=== PATIENT | male | born 1945 | race Caucasian/White ===

== ENCOUNTER 2018-12-22 10:03 | Outpatient (CLI) | payer MEDICARE ==
[2018-12-22 17:45] LABS: BASOPHILS % (AUTO) 0.6 %; EOSINOPHILS # (AUTO) 0.2 10^3/uL (0.0-0.7); EOSINOPHILS % (AUTO) 2.3 %; HGB - HEMOGLOBIN 15.5 g/dL (14.0-18.0); LYMPHOCYTES # (AUTO) 1.6 10^3/uL (1.5-3.5); LYMPHOCYTES % (AUTO) 23.7 %; MEAN CORPUSCULAR HEMOGLOBIN 31.3 pg (27.0-31.0); MEAN CORPUSCULAR VOLUME 94.9 fL (80.0-94.0); MEAN PLATELET VOLUME 10.4 fL (7.4-11.4); MONOCYTES # (AUTO) 0.6 10^3/uL (0.0-1.0); MONOCYTES % (AUTO) 8.9 %; NEUTROPHILS # (AUTO) 4.4 10^3/uL (1.5-6.6); NEUTROPHILS % (AUTO) 64.2 %; PLT - PLATELET COUNT 329 10^3/uL (130-450); RED BLOOD COUNT 4.95 10^6/uL (4.70-6.10); WHITE BLOOD COUNT 6.9 x10^3/uL (4.8-10.8)
[2018-12-22 18:57] LABS: ALBUMIN 4.1 g/dL (3.2-5.5); ALBUMIN/GLOBULIN RATIO 1.4 (1.0-2.2); ALKALINE PHOSPHATASE 67 IU/L (42-121); ALT ALANINE AMINOTRANSFERASE 38 IU/L (10-60); AST ASPARTATE AMINOTRANSFERASE 42 IU/L (10-42); BILIRUBIN,TOTAL 1.8 mg/dL (0.2-1.0); BUN - BLOOD UREA NITROGEN 22 mg/dL (6-20); CALCIUM 9.2 mg/dL (8.5-10.3); CARBON DIOXIDE - CO2 24 mmol/L (21-32); CHLORIDE 103 mmol/L (101-111); CHOL/HDL RATIO 2.1 (<5.0); CHOLESTEROL 121 mg/dL; GFR - MDRD 74 (>89); GLUCOSE 98 mg/dL (70-100); HDL CHOLESTEROL 59 mg/dL; LDL CHOLESTEROL,CALCULATED 53 mg/dL; LDL/HDL RATIO 0.9 (<3.6); SODIUM 137 mmol/L (135-145); VLDL CHOLESTEROL 9 mg/dL
== END 2018-12-22 10:04 | disposition home or self-care (01) ==
LOC: LAB.S 10:03
PROVIDERS: ATTEND Physician Assistant
DX: E78.2 Mixed hyperlipidemia (principal); I10 Essential (primary) hypertension
CPT/HCPCS: 36415; 80053; 80061; 83721; 85025

== ENCOUNTER 2019-03-09 10:22 | Outpatient (CLI) | payer MEDICARE ==
--- NOTE | 2019-03-10 14:45 | XRAY Report ---
Reason: ACUTE ANKLE PAIN Procedure Date: 03/09/2019 Accession Number: [id number] / [id number] Procedure: XRS - Ankle 3 View RT CPT Code: FULL RESULT: EXAM: RIGHT ANKLE RADIOGRAPHY EXAM DATE: 03/09/2019 10:37 AM. CLINICAL HISTORY: Acute ankle pain. COMPARISON: None. TECHNIQUE: 3 views. FINDINGS: Bones: Normal. No fractures or bone lesions. Joints: Normal. No effusion. No subluxations. The ankle mortise is normally aligned. Soft Tissues: There is diffuse soft tissue swelling. IMPRESSION: Extensive soft tissue swelling. No visible fracture. RADIA
== END 2019-03-09 10:23 | disposition home or self-care (01) ==
LOC: DI.S 10:22
PROVIDERS: ATTEND Physician Assistant
DX: M25.571 Pain in right ankle and joints of right foot (principal); R22.41 Localized swelling, mass and lump, right lower limb

== ENCOUNTER 2019-06-29 13:46 | Outpatient (CLI) | payer MEDICARE ==
[2019-06-29 14:33] LABS: BASOPHILS % (AUTO) 0.4 %; EOSINOPHILS % (AUTO) 1.8 %; LYMPHOCYTES % (AUTO) 25.1 %; MEAN CORPUSCULAR HEMOGLOBIN 31.6 pg (27.0-31.0); MEAN CORPUSCULAR HGB CONC 33.7 g/dL (32.0-36.0); MEAN CORPUSCULAR VOLUME 93.9 fL (80.0-94.0); MONOCYTES % (AUTO) 6.8 %; NEUTROPHILS % (AUTO) 65.6 %; PLT - PLATELET COUNT 293 10^3/uL (130-450); RED BLOOD COUNT 5.06 10^6/uL (4.70-6.10); RED CELL DISTRIBUTION WIDTH 12.7 % (12.0-15.0); WHITE BLOOD COUNT 7.8 x10^3/uL (4.8-10.8)
[2019-06-29 14:38] LABS: ABNORMAL LYMPHS % (MANUAL) 0 %
[2019-06-29 14:50] LABS: BAND NEUTROPHILS % (MANUAL) 2 %; EOSINOPHILS # (MANUAL) 0.1 10^3/uL (0-0.7); LYMPHOCYTES # (MANUAL) 2.3 10^3/uL (1.5-3.5); LYMPHOCYTES % (MANUAL) 9 %; MONOCYTES # (MANUAL) 0.5 10^3/uL (0.0-1.0); PLATELET MORPHOLOGY RARE GIANT PLATELETS (NORMAL); RBC MORPHOLOGY (MULTIPLE) NORMAL APPEARANCE (NORMAL)
[2019-06-29 14:51] LABS: DIFFERENTIAL COMMENT MANUAL DIFFERENTIAL
[2019-06-29 15:08] LABS: ALBUMIN 4.3 g/dL (3.2-5.5); ALBUMIN/GLOBULIN RATIO 1.8 (1.0-2.2); BILIRUBIN,TOTAL 2.4 mg/dL (0.2-1.0); CALCIUM 9.1 mg/dL (8.5-10.3); TOTAL PROTEIN 6.7 g/dL (6.7-8.2)
[2019-06-30 12:33] LABS: HEPATITIS C ANTIBODY NON-REACTIVE (NON-REACTIVE)
== END 2019-06-29 13:47 | disposition home or self-care (01) ==
LOC: LAB 13:46
PROVIDERS: ATTEND Physician Assistant
DX: E80.6 Other disorders of bilirubin metabolism (principal); Z11.59 Encounter for screening for other viral diseases; R17 Unspecified jaundice
CPT/HCPCS: 36415; 80053; 83010; 83615; 85025; 86803

== ENCOUNTER 2020-02-24 06:39 | Outpatient (CLI) | payer MEDICARE ==
[2020-02-24 07:43] LABS: BASOPHILS % (AUTO) 0.6 %; EOSINOPHILS # (AUTO) 0.1 10^3/uL (0.0-0.7); EOSINOPHILS % (AUTO) 1.7 %; HGB - HEMOGLOBIN 16.7 g/dL (14.0-18.0); LYMPHOCYTES # (AUTO) 1.6 10^3/uL (1.5-3.5); LYMPHOCYTES % (AUTO) 22.5 %; MEAN CORPUSCULAR HEMOGLOBIN 31.7 pg (27.0-31.0); MEAN CORPUSCULAR HGB CONC 33.1 g/dL (32.0-36.0); MEAN CORPUSCULAR VOLUME 95.8 fL (80.0-94.0); MEAN PLATELET VOLUME 9.4 fL (7.4-11.4); MONOCYTES # (AUTO) 0.4 10^3/uL (0.0-1.0); MONOCYTES % (AUTO) 6.2 %; NEUTROPHILS # (AUTO) 4.8 10^3/uL (1.5-6.6); NEUTROPHILS % (AUTO) 68.4 %; PLT - PLATELET COUNT 322 10^3/uL (130-450); RED BLOOD COUNT 5.27 10^6/uL (4.70-6.10); RED CELL DISTRIBUTION WIDTH 12.9 % (12.0-15.0)
[2020-02-24 07:53] LABS: INR 1.1 (0.8-1.2); PT - PROTHROMBIN TIME 12.3 secs (9.9-12.6)
[2020-02-24 07:57] LABS: ALBUMIN 4.5 g/dL (3.2-5.5); ALBUMIN/GLOBULIN RATIO 1.6 (1.0-2.2); BILIRUBIN,DIRECT 0.3 mg/dL (0.1-0.5); BILIRUBIN,TOTAL 1.9 mg/dL (0.2-1.0); CALCIUM 9.9 mg/dL (8.5-10.3); TOTAL PROTEIN 7.3 g/dL (6.7-8.2)
[2020-02-24 08:00] LABS: PARTIAL THROMBOPLASTIN TIME 29.3 secs (24.9-33.3)
[2020-02-24 08:18] LABS: PLATELET MORPHOLOGY NORMAL APPEARANCE (NORMAL)
[2020-02-24 08:19] LABS: PLATELET ESTIMATE, MANUAL NORMAL (130-450,000) (NORMAL); RBC MORPHOLOGY (MULTIPLE) NORMAL APPEARANCE (NORMAL)
--- NOTE | 2020-02-24 12:45 | Ultrasound Report ---
PROCEDURE: Abdomen Limited INDICATIONS: ELEVATION OF TRANSAMINASE AND LDH TECHNIQUE: Real-time scanning was performed of the abdominal and retroperitoneal organs, with image documentatio n. COMPARISON: None. FINDINGS: Liver: Liver is normal in size and increased in echotexture. Gallbladder: No stones are identified. Wall thickness measures 1.3 mm. Biliary ducts: Intrahepatic bile ducts are non-dilated. Extrahepatic bile duct caliber measures 5.1 mm. Normal is 6-7 mm or less in diameter, or 10 mm or less post-cholecystectomy. Pancreas: Visualized portions of the pancreas are sonographically normal. Kidneys: Kidneys are normal in size and echotexture. Right kidney measures 11.7 cm long. No hydron ephrosis or nephrolithiasis. No solid masses. Right renal cyst is noted measuring 7 x 6 x 7 mm. IMPRESSION: 1. Mild hepatic steatosis. Reviewed by: Shital Dejesus MD on 02/24/2020 12:43 PM PDT Approved by: Shital Dejesus MD on 02/24/2020 12:43 PM PDT Station ID: [id number]
== END 2020-02-24 06:40 | disposition home or self-care (01) ==
LOC: DI 06:39
PROVIDERS: ATTEND Nurse Practitioner Family
DX: Z01.818 Encounter for other preprocedural examination (principal); K76.0 Fatty (change of) liver, not elsewhere classified; R74.0 Nonspecific elevation of levels of transaminase and lactic acid dehydrogenase [LDH]; N40.1 Benign prostatic hyperplasia with lower urinary tract symptoms; E80.6 Other disorders of bilirubin metabolism; R79.89 Other specified abnormal findings of blood chemistry
CPT/HCPCS: 36415; 76705; 80053; 82248; 82977; 84153; 85025; 85610; 85730

== ENCOUNTER 2021-07-17 07:05 | Outpatient (CLI) | payer MEDICARE ==
[2021-07-17 15:09] LABS: ALBUMIN 3.9 g/dL (3.2-5.5); ALBUMIN/GLOBULIN RATIO 1.4 (1.0-2.2); ALKALINE PHOSPHATASE 72 IU/L (42-121); ALT ALANINE AMINOTRANSFERASE 24 IU/L (10-60); AST ASPARTATE AMINOTRANSFERASE 29 IU/L (10-42); BILIRUBIN,TOTAL 1.3 mg/dL (0.2-1.0); BUN - BLOOD UREA NITROGEN 24 mg/dL (6-20); CALCIUM 9.2 mg/dL (8.5-10.3); CARBON DIOXIDE - CO2 29 mmol/L (21-32); CHLORIDE 101 mmol/L (101-111); CHOL/HDL RATIO 2.1 (<5.0); CHOLESTEROL 127 mg/dL; CREATININE 1.1 mg/dL (0.6-1.2); GFR - MDRD 65 (>89); GLUCOSE 94 mg/dL (70-100); HDL CHOLESTEROL 60 mg/dL; LDL CHOLESTEROL,CALCULATED 53 mg/dL; LDL/HDL RATIO 0.9 (<3.6); POTASSIUM 4.1 mmol/L (3.5-5.0); SODIUM 139 mmol/L (135-145); TOTAL PROTEIN 6.6 g/dL (6.7-8.2); TRIGLYCERIDES 70 mg/dL; VLDL CHOLESTEROL 14 mg/dL
== END 2021-07-17 07:06 | disposition home or self-care (01) ==
LOC: LAB.S 07:05
PROVIDERS: ATTEND Registered Nurse
DX: N40.0 Benign prostatic hyperplasia without lower urinary tract symptoms (principal); I10 Essential (primary) hypertension; I25.2 Old myocardial infarction
CPT/HCPCS: 36415; 80053; 80061; 83721; 84153

== ENCOUNTER 2021-08-15 15:09 | Outpatient (CLI) | payer MEDICARE ==
--- NOTE | 2021-08-15 15:38 | XRAY Report ---
PROCEDURE: Chest 2 View X-Ray INDICATIONS: COUGH TECHNIQUE: 2 view(s) of the chest. COMPARISON: None. FINDINGS: Surgical changes and devices: None. Lungs and pleura: No pleural effusions or pneumothorax. Lungs are clear. Mediastinum: Mediastinal contours are normal. Heart size is normal. Bones and chest wall: No suspicious bony abnormalities. Soft tissues appear unremarkable. IMPRESSION: No acute cardiopulmonary process demonstrated radiographically. Reviewed by: John Alejandre MD on 08/15/2021 3:36 PM PDT Approved by: John Alejandre MD on 08/15/2021 3:36 PM PDT Station ID: [id number]
== END 2021-08-15 15:10 | disposition home or self-care (01) ==
LOC: DI.S 15:09
PROVIDERS: ATTEND Registered Nurse
DX: R05.9 Cough, unspecified (principal)